=== PATIENT | male | born 1965 | race Caucasian/White ===

== ENCOUNTER 2017-11-02 16:47 | Emergency (ER) | payer OTHER ==
[~2017-11-02] VITALS: Ht 177.8 cm; Wt 83.9 kg
[2017-11-02] MEDS ORDERED: KEFLEX500 M1 PO (18:40)
== END 2017-11-02 19:28 | disposition home or self-care (01) ==
LOC: ER 16:47
DX: S62.604B Fracture of unspecified phalanx of right ring finger, initial encounter for open fracture (principal); W23.0XXA Caught, crushed, jammed, or pinched between moving objects, initial encounter; Y93.89 Activity, other specified; Y92.89 Other specified places as the place of occurrence of the external cause; Y99.8 Other external cause status